=== PATIENT | male | born 1990 | race Caucasian/White ===

== ENCOUNTER 2021-09-28 13:37 | Emergency (ER) | payer SELFPAY ==
[2021-09-28 13:43] VITALS: BP 156/95; PULSE 70; RESP 16; TEMP 36.6; O2SAT 96; BMI 35.5
--- NOTE | 2021-09-28 14:05 | W.ED.BACK ---
HPI - Back Pain/Injury General: Chief Complaint: Back Pain/Injury Stated Complaint: Low back pain Time Seen by Provider: 09/28/21 13:48 History of Present Illness: Patient is a 30-year-old male comes to the ED with lower back pain. Patient has had symptoms for the past 3 weeks. He says they first started after he was jumping around on the trampoline with his kids 3 weeks ago. Denies any fall or trauma to cause low back pain. Pain has progressed over the past 3 weeks. He rates the pain currently a 10 out of 10 at its right lower lumbar region. Pain radiates down into right leg. Denies any bladder or bowel incontinence, pelvic anesthesia or weakness to lower extremities. Associated symptoms: Deny abdominal pain, chills, dysuria, fatigue, fever(s), hematuria, nausea or vomiting Review of Systems Const: Denies: fever(s), chills or fatigue Eyes: Denies: change in vision or eye discomfort ENMT: Denies: throat pain, odynophagia, nasal discharge or nasal congestion Card: Denies: chest pain, palpitations, edema, swelling of feet/ankles, dyspnea on exertion or orthopnea Resp: Denies: dyspnea, productive cough or non-productive cough GI: Denies: abdominal pain, nausea, vomiting, diarrhea, constipation or hematochezia : Denies: flank pain, difficulty urinating, dysuria or hematuria Musc: Reports: back pain; Denies: neck pain or extremity swelling Skin/Breast: Denies: rash or new lesions Neuro: Denies: headache(s), numbness in extremities or weakness in extremities [facility] ED PFSH: Medical History No pertinent family history Surgical History No pertinent past surgical history Physical Exam Const: COMMON NORMALS: patient oriented x3, healthy appearing and alert GENERAL APPEARANCE: cooperative and comfortable HENMT: COMMON NORMALS: normocephalic HEAD & SCALP: normocephalic MOUTH: Normal oral and palatal mucosa present THROAT: posterior oropharynx normal and uvula midline Neck/C-Spine: COMMON NORMALS: supple GENERAL: Yes normal visual inspection Resp: COMMON NORMALS: normal respiratory effort, No retractions, No use of accessory muscles and clear to auscultation bilaterally AUSCULTATION: clear to auscultation bilaterally Cardio: COMMON NORMALS: regular rate, regular rhythm, S1 normal heart sound present, S2 normal heart sound present, No gallops present (Cardio), No clicks present (Cardio), No murmurs present (Cardio) and Peripheral pulses 2+ throughout RATE: regular rate RHYTHM: regular rhythm HEART SOUNDS: S1 normal heart sound present and S2 normal heart sound present PERIPHERAL PULSES: Peripheral pulses 2+ throughout GI: COMMON NORMALS: Normal to inspection, nondistended, normoactive bowel sounds present, Soft to palpation, non-tender and no masses PALPATION: Yes Soft to palpation : COMMON NORMALS: Yes no CVA tenderness BLADDER/KIDNEY EXAM: Yes no CVA tenderness Back/Pelvis: COMMON NORMALS: no CVA tenderness LUMBAR SPINE/LOWER BACK: Yes pain with ROM, No lumbar spinal tenderness and Yes paraspinal muscle tenderness Lumbar paraspinal muscle tenderness: right Right lumbar paraspinal muscle tenderness: L4 and L5 Extremity: COMMON NORMALS: normal to inspection Neuro: COMMON NORMALS: patient oriented x3 and moves all extremities SENSORIUM/ORIENTATION: Yes alert Skin: GENERAL SKIN EXAM: dry skin Course Vital Signs: Vital signs: Vital Signs Temperature 97.9 F 09/28/21 13:43 Pulse Rate 70 09/28/21 13:43 Respiratory Rate 16 09/28/21 13:43 Blood Pressure 156/95 09/28/21 13:43 Pulse Oximetry 96 09/28/21 13:43 MDM - Back Pain/Injury Medical Decision Making Patient is a 30-year-old male comes to the ED with lower back pain that radiates down into right leg.Patient has had symptoms for the past 3 weeks. He says they first started after he was jumping around on the trampoline with his kids 3 weeks ago. Denies any fall or trauma to cause low back pain. Denies any cauda equina symptoms. Vitals are stable. Patient appears nontoxic and in no acute distress. He has some right lumbar paraspinal muscle tenderness. Patient was given a dose of Toradol, Norflex and Solu-Medrol while here in the ED. Patient diagnosed with lumbar radiculopathy was discharged home with a prescription for Celebrex, Flexeril and prednisone. Patient does not have a primary care doctor and is new to [facility] [address] here so I placed an order with case management for patient to be referred to a PCP to get established with. Return to ED precautions given. Patient understood and agree with plan. Discharge Plan Discharge Patient Disposition: Home Clinical Impression: Lumbar radiculopathy Condition: Stable Prescriptions: New Celebrex 100 mg capsule 100 mg PO BID PRN (Reason: pain) Qty: 20 0RF cyclobenzaprine 10 mg tablet 10 mg PO BID PRN (Reason: muscle spasm) Qty: 20 0RF prednisone 20 mg tablet 20 mg PO BID 7 Days Qty: 14 0RF Discharge Orders: Discharge ED (Routine); Ordered 09/28/21 Ordered By: Canelo Dahl Discharge Diet: Regular Discharge Activity: Increase activity as tolerated Patient Instructions: Lumbar Radiculopathy (ED) Activity Restrictions/Additional Instructions: Follow-up with medical provider as directed. Case management should be contacting you next several days set up an appointment with primary care physician.stretch lower back daily and apply cold pack or heat to help with symptoms. Take medications as prescribed. Cyclobenzaprine is a muscle relaxer and can cause some drowsiness so take at night before going to bed. You can start taking your prednisone tomorrow since I gave you steroid dose here in the ED. Return to the ER or your medical provider if condition worsens. Please read and understand discharge instructions. Thank you for choosing [facility] for your healthcare needs today. Please realize this is an emergency room and that we are providing you with a medical screening exam and this may not be complete and all inclusive of all the testing and or work up that you may need to determine your ailment or severity of your illness. It is very important that you follow up as instructed or that you return to the Emergency Department should you have concerns or if your condition changes or worsens in any way. Coding Level of Care Code ED [employer] Operator for Anita Benedict Exam Comprehensive
[2021-09-28] MEDS: ketorolac 60 mg/2 mL INJ IM (14:33)
[2021-09-28] MEDS: orphenadrine 30 mg/mL Inj 2 mL 60 MG IM (14:33)
--- NOTE | 2021-09-29 14:25 | DCPLANNER ---
r d manager had message to speak with patient about getting established with a primary care physician. r d manager unable to speak with patient at this time.
== END 2021-09-28 14:53 | disposition home or self-care (01) ==
PROVIDERS: Emergency Provider Physician Assistant
DX: M54.16 Radiculopathy, lumbar region (principal)
CPT/HCPCS: 96372; 99283; J1885; J2360; J2930